=== PATIENT | female | born 1980 | race Caucasian/White ===

== ENCOUNTER 2024-12-13 15:44 | Outpatient (CLI) | payer MEDICAID, SELFPAY ==
--- NOTE | 2024-12-13 13:00 | DI.RAD_ITS ---
Exam(s) XR KNEE RT 2V AP,LAT EXAM: XR KNEE RT 2V AP,LAT CLINICAL HISTORY: evlautate knee pain. TECHNIQUE: 2D digital imaging was performed of the right knee. Two views obtained. AP and lateral views were obtained. COMPARISON: CR XR Knee Complete 4+ Views Right from 09/25/2023 MR MRI LE Joint w/o Contrast Right from 10/14/2023 FINDINGS: BONES: No acute fracture is present. No bony destructive lesion is seen. JOINTS: The knee is normally aligned. No joint effusion is seen. SOFT TISSUE: Normal. IMPRESSION: Unremarkable radiographs of the right knee. DATA REPOSITORY: RADIATION DOSE DELIVERED:
== END 2024-12-13 15:45 | disposition home or self-care (01) ==
LOC: DIORS 15:45
PROVIDERS: PCP Family Medicine; Visit Provider Student in an Organized Health Care Education/Training Program
DX: M25.561 Pain in right knee (principal)
CPT/HCPCS: 73560

== ENCOUNTER 2025-01-08 02:10 | Outpatient (CLI) | payer MEDICAID, SELFPAY ==
--- NOTE | 2025-01-08 06:15 | DI.MRI_ITS ---
Exam(s) MR LOWER JOINT RT WO EXAM: MR LOWER JOINT RT WO CLINICAL HISTORY: R KNEE PAIN,stiffnes,chondromalacia,m94.261,m25.661. TECHNIQUE: Multiplanar multisequence MRI was performed. COMPARISON: CR XR KNEE RT 2V AP,LAT from 12/13/2024 FINDINGS: BONES: There is no fracture or contusion pattern. JOINTS: A small joint effusion is present. Articular cartilage: Patellofemoral joint: Articular cartilage is unremarkable. Medial femoral tibial joint: Minimal cartilage thinning and irregularity. Lateral femoral tibial joint: Articular cartilage is unremarkable. LIGAMENTS/TENDONS: Anterior Cruciate: Unremarkable. Posterior Cruciate: Unremarkable. Medial Collateral:Unremarkable. Lateral Collateral ligament complex: Unremarkable. Extensor mechanism: Unremarkable. Medial retinaculum: Unremarkable. Lateral retinaculum: Unremarkable. Popliteus: Unremarkable. MENISCI: The medial meniscus is unremarkable. The lateral meniscus is unremarkable. MUSCLES: Unremarkable. SOFT TISSUES: Unremarkable mild anterior edema in the subcutaneous fat. IMPRESSION: Mild cartilage thinning and irregularity at the medial femoral tibial joint. Small joint effusion. DATA REPOSITORY:
== END 2025-01-08 02:30 ==
LOC: DI 02:10
PROVIDERS: PCP Family Medicine; Visit Provider Student in an Organized Health Care Education/Training Program
DX: M25.661 Stiffness of right knee, not elsewhere classified (principal); M94.261 Chondromalacia, right knee
CPT/HCPCS: 73721

== ENCOUNTER 2025-02-09 09:21 | Day surgery (SDC) | payer MEDICAID, SELFPAY ==
[2025-02-09] VITALS (21 sets, daily range): BP systolic 141–159; BP diastolic 70–104; PULSE 84–128; RESP 11–27; TEMP 36.6–37.4; O2SAT 91–99; BMI 43.4
--- NOTE | 2025-02-09 07:14 | PDOC.DSDIS_ITS ---
Date of service: 02/09/25 Discharge Plan Disposition Patient Disposition: Home Condition: Stable Discharge Details Attending Provider: Heriberto Parks Primary Care Provider: Jeffrey Carlson Home Meds and New Rx's Prescriptions: New naproxen 250 mg tablet 250 - 500 mg PO BID PRN (Reason: moderate pain and swelling) Qty: 40 0RF oxycodone 5 mg tablet 5 - 10 mg PO .q4-6h MDD 30 mg PRN (Reason: severe pain) Qty: 18 0RF aspirin 81 mg capsule 81 mg PO DAILY 14 Days Qty: 14 0RF Continued chlorthalidone 25 mg tablet 25 mg PO DAILY losartan 50 mg tablet 100 mg PO DAILY Mirena 21 mcg/24hr (up to 8 yrs) 52 mg intrauterine device 1 device intrauterine ONCE Rx Instructions: as a single dose albuterol sulfate [Ventolin HFA] 90 mcg/actuation HFA aerosol inhaler 2 puff inhalation Q6H PRN Qvar RediHaler 80 mcg/actuation HFA aerosol breath activated 1 inh inhalation DAILY metoprolol succinate 50 mg tablet extended release 24 hr 150 mg PO DAILY Discontinued oxycodone 5 mg capsule 5 mg PO TID PRN Discharge Instructions Additional Instructions: Surgery: Right knee arthroscopy with medial femoral condyle chondroplasty, partial lateral meniscectomy, and synovectomy 02/09/25 Activity: Weightbearing as tolerated. Advance range of motion as comfort allows. No knee brace or crutches needed as soon as comfortable. Recommend avoiding sports, pivoting, and squatting for 6-8 weeks. A physical therapy prescription will be sent electronically to start in about 3 weeks. Prescriptions: Aspirin 81 mg take 1 daily to prevent a blood clot for 14 days, starting tomorrow Naproxen 250 mg take 1-2 every 12 hours with a meal as needed for moderate pain Oxycodone 5 mg take 1-2 every 4-6 hours as needed for severe pain These pain medications may be taken at once or in different combinations as needed. Also, recommend Colace (docusate) as a stool softener as surgery and pain medicine cause constipation. You may try [id number] diphenhydramine (Benadryl) 25-50 mg nightly as a sleep aid Dressings: Leave dressing in place for 3 days. May then remove and leave open to air or cover incisions with Band-Aids. Leave the sticky Steri-Strips in place until they fall off or remove them after you shower. May shower after 5 days. Follow-up: 10-[address] Parks You may take off the leg compression stockings this evening at home. You may also leave them on a few days longer if you have a history of leg swelling or edema. Let us know right away if you develop any redness, drainage, fevers, chest pain, or trouble breathing. Do not drink alcohol or drive for at least 24 hours after anesthesia. Please call the office during business hours with any questions or concerns. Stand Alone Forms: Anesthesia Discharge Inst., Crutch Training Instructions, Javi Biggs (DSU), Portal Information Referrals: Heriberto Parks MD [ [facility] STAFF PHYSICIAN, Orthopaedic Surgical] - 02/21/25 1:30 pm Discharge Orders Discharge Orders: Discharge Order (Routine); Ordered 02/09/25 Ordered By: Leela Gustafson DS: Diagnosis Discharge Diagnosis (1) Stiffness of right knee: Status: Acute (2) Chondromalacia, right knee: Status: Acute (3) Hoffa disease of right knee: Status: Acute
--- NOTE | 2025-02-09 07:27 | ROE_ITS ---
Operative Note Operative Note PRE-OP DIAGNOSIS: Right knee 1. Amplified pain 2. Chondromalacia 3. Stiffness 4. Hoffas fat pad synovitis POST-OP DIAGNOSIS: same PROCEDURE: Right knee 1. Partial lateral meniscectomy, CPT #38497 2. Greater than 2 compartment synovectomy, CPT #46526: Anterior, intercondylar, patellofemoral, and suprapatellar 3. Chondroplasty, CPT #92455: Medial femoral condyle SURGEON: Heriberto Parks COMPASS OPERATOR: None None ANESTHESIA TYPE: Local By Surgeon and General LMA/ETT Refer to Anesthesia Record ESTIMATED BLOOD LOSS: 5 PATHOLOGY: none sent TOURNIQUET TIME: 0 Patient was transported to: PACU Patient's condition: stable Indications: Please see complete medical record for details. Findings: Exam under anesthesia: Full range of motion without difficulty, no instability Arthroscopic findings: Moderate anterior and patellofemoral synovitis with more mild intercondylar synovitis, and a few suprapatellar adhesions. Moderately sized about 2 x 2 cm area of cartilage thinning, which appeared consistent with old medial femoral condyle injury that was largely healed over and stable with some loose cartilage flaps around the margin. Medial femoral condyle generalized chondromalacia and moderate thinning especially near this area. Medial meniscus possibly reflecting old posterior horn body junction area injury, but unable to visualize any tear, probed stable, and no hidden lesions found. Small posterior horn lateral meniscus at root partial tearing fraying. Intact lateral meniscus cartilage. Mild patellofemoral chondromalacia. No pathologic-appearing synovium Procedure Description: In the operating room, general anesthesia was induced. The patient was po sitioned supine on the operating room table. All bony prominences were well- padded. Preoperative antibiotics were administered. The knee was prepped and draped in the usual sterile fashion. The correct patient, procedure, and side of the procedure were all verified prior to incision. Exam under anesthesia was performed. 10 cc of 0.25% bupivacaine containing epinephrine was infiltrated about the planned anteromedial and anterolateral knee arthroscopy portals. The portals were established and a complete diagnostic arthroscopy was performed with relevant findings detailed above. The mechanical shaver was used to remove abundant and somewhat inflamed synovium from the anterior, intercondylar, and patellofemoral areas. The shaver was also used to resect and remove some adhesions in the suprapatellar space recreated normal pouch. The probe was used to carefully examine the medial femoral condyle cartilage zone of injury. There was displaceable loose edges of cartilage around the margin especially heading centrally or laterally. The shaver was used to lightly debride the frayed cartilage followed by the torpedo to resect these unstable edge flaps and establish a stable margin of cartilage while preserving cartilage not involved in the injury. The posterior horn of the lateral meniscus near the root junction fraying was readily trimmed to stable meniscus tissue with the torpedo shaver. Under direct arthroscopic visualization an 18-gauge needle was passed into the knee from superolateral into the suprapatellar pouch. The knee was copiously irrigated with arthroscopic fluid until there was a clear effluent before being drained of all fluid. The anteromedial and anterolateral portals were closed in 3-0 Monocryl in a buried interrupted fashion. 20 cc of 0.25% bupivacaine with epinephrine containing 8 mg of morphine was infiltrated into the knee through the previously placed needle. Mastisol, Steri-Strips, and 4 x 4 gauze were applied over the incisions. The knee was then wrapped gently with an JOSE J comressive bandage. The patient awoke from anesthesia without complication and was transferred to the recovery room in a stable condition. Date of Procedure: 02/09/25
--- NOTE | 2025-02-09 11:43 | ANES.PREOP_ITS ---
General Info Date of Service Date Performed: 02/09/25 Height: 5 ft 1 in Weight: 104.4 kg Body Mass Index (BMI): 43.4 Surgical Procedure: Operation Date: 02/09/25 12:40 Proposed Procedure Side Surgeon p Knee Arthroscopy Right Heriberto Parks MD s Knee Manipulation of Knee Right Heriberto Parks MD Meds Allergies and Home Medications Allergies Allergy/AdvReac Type Severity Reaction Status Date / Time acetaminophen (From Tylenol) Allergy Severe throat Verified 02/09/25 10:20 swelling armodafinil (From Nuvigil) Allergy Severe Anaphylaxis Verified 02/09/25 10:20 Home Medication Medication Instructions Recorded albuterol sulfate 90 mcg/actuation 2 puff inhalation Q 6H PRN 11/24/24 aerosol inhaler (Ventolin HFA) beclomethasone dipropionate 80 1 inh inhalation DAILY 11/24/24 mcg/actuation HFA breath activated aerosol (Qvar RediHaler) levonorgestrel (Mirena) 1 device intrauterine ONCE 0 11/24/24 losartan 50 mg tablet 100 mg PO DAILY 11/24/24 chlorthalidone 25 mg tablet 25 mg PO DAILY 01/16/25 metoprolol succinate 50 mg 150 mg PO DAILY 01/16/25 tablet,extended release 24 hr oxycodone 5 mg capsule 5 mg PO TID PRN 01/16/25 Current Visit Medications: Current Medications Generic Name Dose Route Start Last Admin Trade Name Freq PRN Reason Stop Dose Admin Ringer's Solution 1,000 mls @ 30 mls/hr 02/09/25 06:00 IV 02/09/25 23:59 INFUSION CHELSY Cefazolin Sodium/Dextrose 2 gm in 50 mls @ 100 mls/hr 02/09/25 06:00 Ancef Duplex IVPB 02/09/25 23:59 PREOP CHELSY Tranexamic Acid/Sodium Chloride 1,000 mg in 100 mls @ 600 mls/hr 02/09/25 06:00 IVPB 02/09/25 23:59 PREOP CHELSY IV Miscellaneous Supplies 1 each 02/09/25 06:00 Iv Access IV 02/09/25 23:59 DIRECTED CHELSY Oxycodone HCl 0 mg 02/09/25 07:14 Oxycodone 5 Mg Tab PO 03/11/25 07:13 Q3H PRN PRN Pain Sodium Chloride 0 ml 02/09/25 06:00 Normal Saline Flush 10 Ml Syr IV 02/09/25 23:59 PRN PRN Sodium Chloride 0 ml 02/09/25 06:00 Normal Saline 10 Ml Vial IJ 02/09/25 23:59 DIRECTED PRN Sterile Water 0 ml 02/09/25 06:00 Water,Injection,Sterile 10 Ml Vial IJ 02/09/25 23:59 DIRECTED PRN PFSH Active Problems Active Problems: Problem Status Onset Code Tear of medial meniscus of right knee Acute S83.241A Hoffa disease of right knee Acute E88.89 Stiffness of right knee Acute M25.661 Amplified musculoskeletal pain Acute M79.18, G89.4 Chondromalacia, right knee Acute M94.261 JAKE (obstructive sleep apnea) Chronic G47.33 Sarcoidosis Acute D86.9 PTSD (post-traumatic stress disorder) Acute F43.10 Medical History Medical History Complex regional pain syndrome type 1 right lower extremity Essential hypertension Surgical History Surgical History History of surgery left middle finger 07/2019, 08/2019 History of dilation and curettage History of 3 sections History of bilateral tubal ligation History of cholecystectomy Tobacco Smoking/Tobacco Use Status: Former Tobacco Use Passive smoking exposure: No Alcohol Alcohol Intake: current Alcohol intake frequency: holidays/special occasions only Alcohol type: hard liquor Substance Use Substance use: Never Substance use type: does not use Vital Signs and Lab Results Vital Signs Most Recent Vital Signs in EMR: Most Recent Vital Signs Temp Pulse Resp BP Pulse Ox 37.4 C 84 14 159/104 H 99 02/09/25 10:28 02/09/25 10:28 02/09/25 10:28 02/09/25 10:28 02/09/25 10:28 Point of Care Results Point of Care Results: POC- Test(urine) Negative 02/09/25 10:50 Anesthesia Assessment and Plan Anesthesia History Personal History: No History of Anesthesia Complications Family History: No Family History of Anesthesia Complications Exercise Tolerance Exercise Tolerance: Metabolic Equivalents>4 Pertinent Negatives Pertinent Negatives: No Symptoms of GERD, No Major Cardiovascular Symptoms or Complaints, No Major Pulmonary Symptoms or Complaints and No History of CVA/TIA Cardiac & Pulmonary Exam Cardiac Exam: Normal S1/S2 Heart Sounds Pulmonary Exam: Clear Bilateral Breath Sounds Implantable Cardiac Device Does patient have a Pacemaker or an ICD?: No Airway Exam Known Difficult Airway: No Mallampati Class: 3 Mouth Opening: Normal (> 3cm) Thyromental Distance: Greater than 3 cm Neck Range of Motion: Full ROM Neck Circumference: Normal Teeth Condition: Normal Dentition ASA Classification ASA Score: ASA 3 Emergency Case?: No NPO Status NPO Status: NPO Clears >2 hours, Solids >8 hours Status Status: Negative HCG Anesthesia Plan Resuscitation Status: Full Code Anesthesia Technique: General Anesthesia Airway Planned: LMA Monitors Used: Standard Monitors
[2025-02-09] MEDS: Lactated Ringers 1,000 ML 30 ML IV (13:07)
[2025-02-09] MEDS: ceFAZolin 2 GM/50 ML BAG IVPB (14:27)
[2025-02-09] MEDS: TRANEXAMIC ACID/SOD. CHL. 1,000 MG/100 ML BAG 600 MG IVPB (14:36)
[2025-02-09] MEDS: Bupivacaine 0.25% Pres-Free W/EPI 30 ML VIAL (14:54)
[2025-02-09] MEDS: EPINEPHrine 10 MG/10 ML ML (14:55)
[2025-02-09] MEDS: MORPHine 10 MG/ML VIAL (15:07)
[2025-02-09] MEDS: fentaNYL 100 MCG/2 ML VIAL IVP ×2 (15:36→15:41)
--- NOTE | 2025-02-09 15:46 | W.ANESPOSTOP ---
Postoperative Evaluation Date, Time and Location Date Performed: 02/09/25 Time Performed: 15:46 Patient Location: PACU Vital Signs Most Recent Imported Vital Signs: Most Recent Vital Signs Temp Pulse Resp BP Pulse Ox 36.7 C 112 H 12 145/97 H 99 02/09/25 15:28 02/09/25 15:41 02/09/25 15:41 02/09/25 15:41 02/09/25 15:41 Pain Score Most Recent Pain Score: Most Recent Pain Score Pain Level 2 02/09/25 15:33 Assessment Mental Status: Awake (Alert & Oriented to Patient Baseline) Airway and Respiratory Function: Patent airway with normal (patient baseline) respiratory exam Cardiovascular Function: Hemodynamically Stable Hydration Status: Adequately Hydrated Nausea & Vomiting: No Nausea or Vomiting Pain: Pain is tolerable per patient Peripheral Nerve Block: Patient did not receive a nerve block
[2025-02-09] MEDS: oxyCODONE 5 MG TAB PO (16:25)
== END 2025-02-09 17:17 | disposition home or self-care (01) ==
LOC: SUR 09:22
PROVIDERS: PCP Family Medicine; Visit Provider Student in an Organized Health Care Education/Training Program
PROC: (CPT 29870; principal; 2025-02-09 12:30)
DX: M25.661 Stiffness of right knee, not elsewhere classified (principal); M94.261 Chondromalacia, right knee; E88.89 Other specified metabolic disorders; G89.29 Other chronic pain
CPT/HCPCS: 29876; 29881; 81025; J0690; J1100; J1171; J1805; J1885; J2250; J2270; J2405; J2704; J3010